=== PATIENT | male | born 1950 | race Caucasian/White ===

== ENCOUNTER → 2018-05-09 10:09 | Outpatient (BNVA) | payer MEDICARE, BC, SELFPAY | PROVIDERS: PCP Family Medicine; Visit Provider Nurse Practitioner Gerontology | DX: R36.1 Hematospermia (principal) | CPT/HCPCS: 81003; 99204 ==

== ENCOUNTER → 2018-08-07 13:05 | Outpatient (BNVA) | payer MEDICARE, BC, SELFPAY | PROVIDERS: PCP Family Medicine; Referring Provider Family Medicine; Visit Provider Physical Therapy Assistant | DX: Z12.11 Encounter for screening for malignant neoplasm of colon (principal) ==

== ENCOUNTER 2018-08-28 10:10 | Day surgery (SDC) | payer MEDICARE, BC, SELFPAY ==
--- NOTE | 2018-08-28 06:46 | W.COLOREPORT ---
Date of service: 08/28/18 Time of Service: 12:02 Colonoscopy Report Date of procedure: 08/28/18 Pre-op diagnosis general: Colon Cancer Screening Post-op diagnosis procedure note: other (Grade 1 internal hemorrhoids, mild diverticulosis, sigmoid polyps x2) Procedure: Colonoscopy with polypectomy by cold forceps Surgeon: Alethea Taylor Anesthesia proc note operative: other (General/ ASA 2 / Janessa Hendrix, SERINA) Estimated blood loss (mL): 3 Pathology: other (sigmoid polyps x 2) Complications: None Disposition: same day Indications: Mr. Beatty is a pleasant 68-year-old male who was seen in the office for a screening colonoscopy. His last colonoscopy was in 2008 and was normal. There is no family history of colon cancer that he is aware of. Risks, benefits and complications have been reviewed. Complications include but are not limited to bleeding, pain, perforation, missed small lesion/polyp, sore throat, aspiration and adverse reaction to the medications. Questions were entertained and answered to their satisfaction and they wished to proceed. No guarantees were given or implied. Prep: Miralax/Dulcolax Procedure Start Time: 12:02 Procedure End Time: 12:23 Retraction Time: 14 minutes Findings: 2 sessile polyps in the sigmoid colon Procedure Description: After informed consent was obtained the patient was taken to the procedure room and placed in a left decubitous position. Monitors were applied and a time out was done. The patients name, date of , procedure, allergies to medications and metal in their body was reviewed. The patient was then sedated. Once sedated and comfortable a rectal exam was done. External exam was normal. Internal exam revealed a normal sphincter tone and no palpable masses. The prostate felt smooth. The scope was then introduced and retro-flexed. Grade 1 internal hemorrhoids were identified. The scope was then advanced to the cecum without difficulty. The TI and appendiceal orifice were identified. The prep was adequate. The scope was then slowly retracted over 14 minutes back into the rectum. Polyps were removed in the sigmoid colon with cold forceps. There was mild diverticulosis of the sigmoid colon. The scope was removed and the patient was woken up and taken back to Same day surgery in stable condition. The patient tolerated the procedure well and there were no immediate complications. Follow up: The patient should follow up in 3-5 years unless they develop changes in bowel habits or other new gastrointestinal complaints.
--- NOTE | 2018-08-28 06:47 | W.PM.DSUDISC ---
Discharge Plan Disposition Patient Disposition: HOME Condition: Good Discharge Details Reason For Visit: Colon Cancer Screening Attending Provider: Alethea Taylor Primary Care Provider: Bonny Massey Home Meds and New Rx's Prescriptions: Continued simvastatin 40 mg tablet 40 mg PO DAILY RF: 0 olanzapine 10 mg tablet 10 mg PO DAILY RF: 0 triamcinolone acetonide 0.1 % cream 1 applic TP BID RF: 0 Discontinued polyethylene glycol 3350 17 gram/dose powder 238 g PO ONCE Qty: 238 RF: 0 bisacodyl [Dulcolax (bisacodyl)] 5 mg tablet,delayed release (DR/EC) 5 mg PO ONCE Qty: 4 RF: 0 Discharge Instructions Instructions: Colonoscopy (DC), Colorectal Polyps (DC), Diverticulosis (DC), Hemorrhoids (DC) Additional Instructions: Findings: 2 small polyps Mild diverticulosis and small internal hemorrhoids Follow up: 3-5 years unless the polyps are benign Please call if you develop: fevers >101.5 Nausea or Vomiting Abdominal pain that is not transient DAY SURGERY UNIT POST COLONOSCOPY INSTRUCTIONS 1. Because there will be medication in your system for the next 24 hours, you may feel a little sleepy. Your coordination will be affected. Therefore: a. Do not drive or operate dangerous equipment for 24 hours. b. Do not drink alcohol beverages for 24 hours (not even beer). c. Plan to go home and rest for the day. 2. Generally there are no restrictions on your activity after a day or so has gone by, but you may feel a bit fatigued for a few days. 3 After you arrive home you may have a light meal and return to a normal diet as you can tolerate it without feeling sick to your stomach. 4. After surgery, you may feel pain or discomfort. This should be only transient, but if it persists please contact your doctor. 5. If there are any questions regarding the findings of your procedure, please feel free to contact your doctor. 6. If you are unable to contact your doctor with a problem, contact the hospital at [phone]. 7. Continue all your regular medications unless directed otherwise. I understand the above instructions and have no questions. Signature of Patient or Responsible Adult Escort Date/Time Name of Responsible Adult Escort Signature of Nurse Date/Time Stand Alone Forms: Kevin Barnhart (LEAHU) Activity:: Activity as Tolerated Diet:: high fiber Discharge Orders Discharge Orders: Discharge Order (Routine); Ordered 08/28/18 Ordered By: Alethea Taylor DS: Diagnosis Discharge Diagnosis (1) S/P colonoscopy: Status: Acute (2) Colorectal polyp detected on colonoscopy: Status: Acute (3) Diverticulosis: Status: Acute (4) Internal hemorrhoids: Status: Acute
[2018-08-28 10:25] VITALS: BP 131/90; PULSE 75; RESP 16; TEMP 36; O2SAT 95
[2018-08-28] MEDS: Lactated Ringers 1,000 ML 80 ML IV (11:03)
--- NOTE | 2018-08-28 12:21 | BOWEL_PTH ---
PATIENT: Hina Beatty LOC: [facility] U#:[id number] AGE/SX: 68/M ROOM: RE08/28/[address]: Alethea Taylor MD : 1950 BED: DIS: 08/28/2018 SPEC #: [id number] RECD: 08/28/18 18:11 STATUS: MICHAEL REQ #: [id number] JENNY: 08/28/18 12:[address]: Alethea Taylor DEPT: Surgical Specimen RECD BY: Justyna Jimenez ENTERED: 08/28/18 18:13 SP TYPE: Bowel OTHR DR: Bonny Massey Tissues: 1 - BIOPSY BOWEL Procedures: GROSS AND MICRO LEVEL 4 Comments: [id number]
[2018-08-28 13:05] VITALS: BP 113/71; PULSE 71; RESP 16; TEMP 36.5; O2SAT 93
== END 2018-08-28 13:20 | disposition home or self-care (01) ==
LOC: SUR 10:11
PROVIDERS: PCP Family Medicine; Visit Provider Surgery
PROC: 0DJD8ZZ Inspection of Lower Intestinal Tract, Via Natural or Artificial Opening Endoscopic (ICD-10-PCS; CPT 45378; principal; 2018-08-28 11:00)
DX: Z12.11 Encounter for screening for malignant neoplasm of colon (principal); D12.5 Benign neoplasm of sigmoid colon; K63.5 Polyp of colon; K64.0 First degree hemorrhoids; K57.30 Diverticulosis of large intestine without perforation or abscess without bleeding
CPT/HCPCS: 45380; 88305

== ENCOUNTER 2018-09-26 09:31 | Outpatient (REF) | payer MEDICARE, BC, SELFPAY ==
[2018-09-26 22:15] LABS: ALT 49 U/L (12-78); AST 21 U/L (15-37); Alkaline Phosphatase 93 U/L (46-116); Anion Gap 11.5 mmol/L (3-11); BUN 11 mg/dL (7-18); Bilirubin, Total 0.7 mg/dL (0.2-1.0); CO2 24.5 mmol/L (21.0-32.0); CREATININE 1.13 mg/dL (0.70-1.30); Calcium 8.8 mg/dL (8.5-10.1); Calculated LDL 78; Chloride 107 mmol/L (98-107); Cholesterol 142 mg/dL (50-200); Glucose 92 mg/dL (70-100); HDL Cholesterol 48 mg/dL (40-60); Sodium 143 mmol/L (136-145); Total Protein 6.7 g/dL (6.4-8.2); Triglyceride 80 mg/dL (30-150)
== END 2018-09-26 09:51 ==
LOC: NCHCN 09:31
PROVIDERS: PCP Family Medicine; Visit Provider Family Medicine
DX: E78.5 Hyperlipidemia, unspecified (principal)
CPT/HCPCS: 80053; 80061; 83721

== ENCOUNTER 2021-07-20 09:42 | Outpatient (REF) | payer MEDICARE, BC, SELFPAY ==
[2021-07-20 17:18] LABS: Hemoglobin A1C 5.8 % (<5.7)
[2021-07-20 17:38] LABS: ALT 62 U/L (16-63); AST 30 U/L (15-37); Albumin 4.2 g/dL (3.4-5.0); Alkaline Phosphatase 89 U/L (46-116); BUN 16 mg/dL (7-18); CREATININE 1.1 mg/dL (0.70-1.30); Calcium 8.9 mg/dL (8.5-10.1); Calculated LDL 63 mg/dL (<100); Chloride 109 mmol/L (98-107); Cholesterol 144 mg/dL (<200); Glucose 113 mg/dL (74-106); HDL Cholesterol 37 mg/dL (40-60); Potassium 4.5 mmol/L (3.5-5.1); Sodium 142 mmol/L (136-145); Total Protein 6.8 g/dL (6.4-8.2); Triglyceride 224 mg/dL (<150)
== END 2021-07-20 09:43 | disposition home or self-care (01) ==
LOC: NCHCN 09:42
PROVIDERS: PCP Family Medicine; Visit Provider Family Medicine
DX: E66.3 Overweight (principal); M79.671 Pain in right foot; E78.5 Hyperlipidemia, unspecified; Z13.1 Encounter for screening for diabetes mellitus
CPT/HCPCS: 80053; 80061; 83036

== ENCOUNTER → 2021-07-20 11:15 | Outpatient (CLI) | payer MEDICARE, BC, SELFPAY ==
--- NOTE | 2021-07-20 13:30 | DI.RAD_ITS ---
Exam(s) XR FOOT RT COMPLETE EXAM: XR FOOT RT COMPLETE CLINICAL HISTORY: RT HEEL PAIN, M79.671,? DJD OR BONE SPUR. TECHNIQUE: 2D digital imaging was performed. COMPARISON: No exams were available for comparison FINDINGS: BONES: No acute fracture is present. No bony destructive lesion is seen. There is mild spurring at t he Achilles insertion on the calcaneus and a tiny plantar calcaneal spur. There are mild degenerativ e changes of the intertarsal 1st tarsal metatarsal joints. Spurring is seen at the anterior aspect d istal tibia. JOINTS: No dislocation present. SOFT TISSUE: Vascular calcifications. IMPRESSION: Tiny heel spurs. Mild degenerative changes. DATA REPOSITORY: RADIATION DOSE DELIVERED:
== END ==
PROVIDERS: PCP Family Medicine; Visit Provider Family Medicine
DX: M79.671 Pain in right foot (principal); M77.31 Calcaneal spur, right foot; M19.071 Primary osteoarthritis, right ankle and foot
CPT/HCPCS: 73630

== ENCOUNTER 2022-10-12 12:34 | Outpatient (REF) | payer MEDICARE, BC, SELFPAY ==
[2022-10-12 14:50] LABS: Anion Gap 12.2 mmol/L (3-11); BUN 17 mg/dL (7-18); CO2 22.8 mmol/L (21.0-32.0); CREATININE 1.1 mg/dL (0.70-1.30); Calcium 9.1 mg/dL (8.5-10.1); Chloride 110 mmol/L (98-107); Estimated GFR 71.77 (mL/min/1.73m2); Glucose 98 mg/dL (74-106); Potassium 4.4 mmol/L (3.5-5.1); Sodium 145 mmol/L (136-145)
[2022-10-12 14:57] LABS: Hemoglobin A1C 5.9 % (<5.7)
[2022-10-12 22:07] LABS: PSA, Screening 3.1 ng/mL (<=6.5)
== END 2022-10-12 12:35 | disposition home or self-care (01) ==
LOC: NCHCN 12:34
PROVIDERS: PCP Family Medicine; Visit Provider Family Medicine
DX: Z12.5 Encounter for screening for malignant neoplasm of prostate (principal); R41.3 Other amnesia; G25.0 Essential tremor; E66.3 Overweight; R73.03 Prediabetes; F31.9 Bipolar disorder, unspecified
CPT/HCPCS: 80048; 84153; 83036

== ENCOUNTER 2023-10-14 14:28 | Outpatient (REF) | payer MEDICARE, BC, SELFPAY ==
[2023-10-14 15:02] LABS: Anion Gap 9.8 mmol/L (3-11); BUN 13 mg/dL (7-18); CO2 25.2 mmol/L (21.0-32.0); Calculated LDL 66 mg/dL (<100); Chloride 107 mmol/L (98-107); Cholesterol 141 mg/dL (<200); Estimated GFR 79.97 (mL/min/1.73m2); Glucose 97 mg/dL (74-106); HDL Cholesterol 41 mg/dL (40-60); Sodium 142 mmol/L (136-145); TSH (W/Ref FT4) 3.35 uIU/mL (0.36-3.74); Triglyceride 173 mg/dL (<150)
[2023-10-14 15:13] LABS: Hemoglobin A1C 5.9 % (<5.7)
== END 2023-10-14 14:29 | disposition home or self-care (01) ==
LOC: NCHCN 14:28
PROVIDERS: PCP Family Medicine; Visit Provider Family Medicine
DX: I10 Essential (primary) hypertension (principal); E78.5 Hyperlipidemia, unspecified; R73.03 Prediabetes; E66.3 Overweight
CPT/HCPCS: 80048; 80061; 83036; 84443

== ENCOUNTER → 2024-01-05 13:42 | Outpatient (BNVA) | payer MEDICARE, BC, SELFPAY | PROVIDERS: PCP Family Medicine; Referring Provider Family Medicine; Visit Provider Physical Therapy Assistant | DX: Z12.11 Encounter for screening for malignant neoplasm of colon (principal) ==

== ENCOUNTER 2024-01-16 08:10 | Day surgery (SDC) | payer MEDICARE, BC, SELFPAY ==
--- NOTE | 2024-01-16 08:42 | W.COLOREPORT ---
Date of service: 01/16/24 Time of Service: 08:42 Colonoscopy Report Procedure Description: PROCEDURES PERFORMED: 1. Colonoscopy PREOPERATIVE DIAGNOSIS: Surveillance colonoscopy, adenomatous polyps POSTOPERATIVE DIAGNOSIS: Grade 1 internal hemorrhoids SURGEON: Georgina Buchanan MD INDICATION for procedure: The patient is a 73-year-old man due for surveillance colonoscopy. He has a personal history of prior adenomatous polyps on last colonoscopy about 5 years ago or so. No family history of colon cancer. No symptoms. FINDINGS: No polyps. No inflammatory findings of any sort. No obvious diverticular disease. Mild grade 1 internal hemorrhoids present. SURVEILLANCE interval/FOLLOW-UP: Considering the history but no polyps on this encounter, I think it is reasonable to repeat another colonoscopy in 7 years - at the age of 80 as long as a good life expectancy exist at that time. SPECIMENS: None EBL: Minimal COMPLICATIONS: None QUALITY of prep: Excellent Procedure in detail: The patient gave written consent and was in agreement with the indications, the potential risks as well as the benefits of the procedure. They were taken to the endoscopy suite and laid in the left lateral decubitus position. A timeout was performed and anesthesia was administered which was tolerated well. I started the procedure. Digital rectal and visual examination was performed and grossly within normal limits. A well-lubricated flexible colonoscope was then introduced and passed without any notable difficulty all the way to the cecum identified by the ileocecal valve and the appendiceal orifice. The scope was then slowly withdrawn with the above-noted findings. The patient tolerated the procedure well and was taken to the PACU in hemodynamically stable condition.
--- NOTE | 2024-01-16 08:43 | W.PM.DSUDISC ---
Date of service: 01/16/24 Time of Service: 08:43 Discharge Plan Disposition Patient Disposition: Home Condition: Good Discharge Details Attending Provider: Ciro Buchanan Primary Care Provider: Bonny Massey Home Meds and New Rx's Prescriptions: No Action simvastatin 40 mg tablet 40 mg PO DAILY olanzapine 10 mg tablet 10 mg PO DAILY bisacodyl [Dulcolax (bisacodyl)] 5 mg tablet,delayed release (DR/EC) 5 mg PO ONCE Qty: 4 0RF Rx Instructions: Take per colonoscopy instructions provided by ordering providers office polyethylene glycol 3350 17 gram/dose powder 17 g PO ONCE Qty: 238 0RF Rx Instructions: Take per colonoscopy instructions provided by ordering providers office metoprolol succinate 50 mg tablet extended release 24 hr 50 mg PO DAILY Patient Comments: dose unverified cholecalciferol (vitamin D3) 25 mcg (1,000 unit) capsule 25 mcg PO DAILY Discharge Instructions Additional Instructions: FINDINGS: No polyps were found today. Your colon and rectum appear very healthy. No inflammatory changes. Overall nothing to worry about. Some very mild hemorrhoid disease was found today which is extremely common, benign and nothing needs to be done about it. You should have another colonoscopy in 7 years because of the history at the age of 80. As long as you have a good life expectancy at that time.(You can decide then) Stand Alone Forms: Colonoscopy Post Instructions Activity:: Activity as Tolerated Diet:: As Tolerated
[2024-01-16 08:52] VITALS: BP 132/76; PULSE 60; RESP 16; TEMP 36.3; O2SAT 94
--- NOTE | 2024-01-16 09:11 | W.ANESPRE ---
General Info Date of Service Date Performed: 01/16/24 Height: 6 ft 3 in Weight: 99.8 kg Body Mass Index (BMI): 27.5 Surgical Procedure: Operation Date: 01/16/24 09:35 Proposed Procedure Side Surgeon p Colonoscopy Ciro Buchanan MD Meds Allergies and Home Medications Allergies Allergy/AdvReac Type Severity Reaction Status Date / Time Opioids - Morphine Analogues Allergy rash Verified 01/16/24 08:44 Home Medication ?Medication ?Instructions ?Recorded olanzapine 10 mg tablet 10 mg PO DAILY 05/09/18 simvastatin 40 mg tablet 40 mg PO DAILY 05/09/18 metoprolol succinate 50 mg 50 mg PO DAILY 02/24/22 tablet,extended release 24 hr cholecalciferol (vitamin D3) 25 25 mcg PO DAILY 12/13/23 mcg (1,000 unit) capsule bisacodyl 5 mg tablet,delayed 5 mg PO ONCE #4 tabs 01/05/24 release (Dulcolax (bisacodyl)) polyethylene glycol 3350 17 17 g PO ONCE #238 grams 01/05/24 gram/dose oral powder Current Visit Medications: Current Medications Generic Name Dose Route Start Last Admin Trade Name Freq PRN Reason Stop Dose Admin Ringer's Solution 1,000 mls @ 80 mls/hr 01/16/24 06:00 IV 01/16/24 23:59 INFUSION CYDNEY IV Miscellaneous Supplies 1 each 01/16/24 06:00 Iv Access IV 01/16/24 23:59 DIRECTED CYDNEY Sodium Chloride 0 ml 01/16/24 06:00 Normal Saline Flush 10 Ml Syr IV 01/16/24 23:59 PRN PRN Sodium Chloride 0 ml 01/16/24 06:00 Normal Saline 10 Ml Vial IJ 01/16/24 23:59 DIRECTED PRN Sterile Water 0 ml 01/16/24 06:00 Water,Injection,Sterile 10 Ml Vial IJ 01/16/24 23:59 DIRECTED PRN PFSH Active Problems Active Problems: Problem Status Onset Code Equinus contracture of ankle Acute M24.573 Plantar fasciitis of right foot Acute M72.2 Internal hemorrhoids Acute K64.8 Diverticulosis Acute K57.90 Colorectal polyp detected on colonoscopy Acute ~08/28/18 K63.5 S/P colonoscopy Acute ~08/28/18 Z98.890 Encounter for screening colonoscopy Acute Z12.11 Medical History Medical History Hypertension Amnesia Pt. denies as well as his Hyperlipidemia Exercise-induced asthma History of basal cell carcinoma Paroxysmal A-fib Ruptured, tendon, Achilles left ~2011, with surgical repair outside of [place]. 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 Erectile dysfunction Bipolar affective disorder Skin rash Surgical History Surgical History History of right hip replacement Right hip replacement 2012 Hx of shoulder surgery Right Total shoulder per pt - 2014 Tobacco Smoking/Tobacco Use Status: Never Alcohol Alcohol Intake: never Substance Use Substance use: Never Substance use type: does not use Vital Signs and Lab Results Vital Signs Most Recent Vital Signs in EMR: Most Recent Vital Signs Temp Pulse Resp BP Pulse Ox 36.3 C L 60 16 132/76 94 01/16/24 08:52 01/16/24 08:52 01/16/24 08:52 01/16/24 08:52 01/16/24 08:52 Lab Results Blood Type / Crossmatch: No Data to Display Complete Blood Count: No Data to Display Complete Metabolic Panel: No Data to Display Liver Function Panel: No Data to Display Coagulation Panel: No Data to Display Cardiac Panel: No Data to Display Arterial Blood Gas: No Data to Display Venous Blood Gas: No Data to Display Pancreas Panel: No Data to Display Thyroid Panel: No Data to Display Infectious Disease: No Data to Display Blood Cultures: No Data to Display Toxicology Panel: No Data to Display Anesthesia Assessment and Plan Anesthesia History Personal History: No History of Anesthesia Complications Family History: No Family History of Anesthesia Complications Exercise Tolerance Exercise Tolerance: Metabolic Equivalents>4 Pertinent Negatives Pertinent Negatives: No Symptoms of GERD, No Major Cardiovascular Symptoms or Complaints, No Major Pulmonary Symptoms or Complaints and No History of CVA/TIA Cardiac & Pulmonary Exam Cardiac Exam: Normal S1/S2 Heart Sounds Pulmonary Exam: Clear Bilateral Breath Sounds Implantable Cardiac Device Does patient have a Pacemaker or an ICD?: No Airway Exam Known Difficult Airway: No Mallampati Class: 4 Mouth Opening: Normal (> 3cm) Thyromental Distance: Greater than 3 cm Neck Range of Motion: Full ROM Neck Circumference: Normal Teeth Condition: Normal Dentition ASA Classification ASA Score: ASA 2 Emergency Case?: No NPO Status NPO Status: NPO Clears >2 hours, Solids >8 hours Anesthesia Plan Resuscitation Status: Full Code Anesthesia Technique: General Anesthesia Airway Planned: Natural Airway Monitors Used: Standard Monitors Preoperative Comments:: 73 y/o male with history of HLD, bipolar affective disorder and paroxysmal atrial fibrillation presents for colonoscopy screening. His last screening was in 2019, which was remarkable for tubular adenoma and hyperplastic polyp.
[2024-01-16 09:14] VITALS: BMI 27.5
[2024-01-16] MEDS: Lactated Ringers 1,000 ML 80 ML IV (09:15)
[2024-01-16 10:08] VITALS: BP 141/81; PULSE 57; RESP 16; TEMP 36.2; O2SAT 96
[2024-01-16 10:29] VITALS: BP 144/77; PULSE 60; RESP 18; TEMP 36.3; O2SAT 94
--- NOTE | 2024-01-16 10:38 | W.ANESPOSTOP ---
Postoperative Evaluation Date, Time and Location Date Performed: 01/16/24 Time Performed: 10:38 Patient Location: Day Surgery Unit Vital Signs Most Recent Imported Vital Signs: Most Recent Vital Signs Temp Pulse Resp BP Pulse Ox 36.3 C L 60 18 144/77 H 94 01/16/24 10:29 01/16/24 10:29 01/16/24 10:29 01/16/24 10:29 01/16/24 10:29 Assessment Mental Status: Awake (Alert & Oriented to Patient Baseline) Airway and Respiratory Function: Patent airway with normal (patient baseline) respiratory exam Cardiovascular Function: Hemodynamically Stable Hydration Status: Adequately Hydrated Nausea & Vomiting: No Nausea or Vomiting Pain: Pt. Denies Any Pain Peripheral Nerve Block: Patient did not receive a nerve block
== END 2024-01-16 11:02 | disposition home or self-care (01) ==
PROVIDERS: PCP Family Medicine; Visit Provider Student in an Organized Health Care Education/Training Program
PROC: 0DJD8ZZ Inspection of Lower Intestinal Tract, Via Natural or Artificial Opening Endoscopic (ICD-10-PCS; CPT 45378; principal; 2024-01-16 09:30)
DX: Z12.11 Encounter for screening for malignant neoplasm of colon (principal); K64.0 First degree hemorrhoids
CPT/HCPCS: G0105; 00123; J2001; J2704

== ENCOUNTER → 2024-11-05 09:32 | Outpatient (BNVA) | payer MEDICARE, BC, SELFPAY | PROVIDERS: PCP Family Medicine; Referring Provider Family Medicine; Visit Provider Psychiatry & Neurology Neurology | DX: G31.84 Mild cognitive impairment of uncertain or unknown etiology (principal); R26.89 Other abnormalities of gait and mobility; R29.2 Abnormal reflex; G56.23 Lesion of ulnar nerve, bilateral upper limbs; I48.20 Chronic atrial fibrillation, unspecified; I10 Essential (primary) hypertension | CPT/HCPCS: 99215 ==

== ENCOUNTER 2024-11-28 16:17 | Outpatient (REF) | payer MEDICARE, BC, SELFPAY ==
[2024-11-28 20:57] LABS: Hemoglobin A1C 5.8 % (<5.7)
[2024-11-28 21:04] LABS: ALT 44 U/L (16-63); AST 27 U/L (15-37); Albumin 3.8 g/dL (3.4-5.0); Alkaline Phosphatase 94 U/L (46-116); Anion Gap 9.1 mmol/L (3-11); BUN 18 mg/dL (7-18); Bilirubin, Total 0.9 mg/dL (0.2-1.0); CO2 24.9 mmol/L (21.0-32.0); Calcium 9.0 mg/dL (8.5-10.1); Calculated LDL 47 mg/dL (<100); Chloride 107 mmol/L (98-107); Cholesterol 134 mg/dL (<200); Estimated GFR 79.47 (mL/min/1.73m2); Glucose 117 mg/dL (74-106); HDL Cholesterol 31 mg/dL (>or=40); Potassium 4.3 mmol/L (3.5-5.1); Sodium 141 mmol/L (136-145); Total Protein 6.8 g/dL (6.4-8.2); Triglyceride 283 mg/dL (<150); Vitamin B12 297 pg/mL (193-986)
== END 2024-11-28 16:18 | disposition home or self-care (01) ==
LOC: NCHCN 16:17
PROVIDERS: PCP Family Medicine; Visit Provider Family Medicine
DX: E78.5 Hyperlipidemia, unspecified (principal); R73.03 Prediabetes; I10 Essential (primary) hypertension; G31.84 Mild cognitive impairment of uncertain or unknown etiology
CPT/HCPCS: 80053; 80061; 82607; 83036

== ENCOUNTER 2024-11-30 00:44 | Outpatient (CLI) | payer MEDICARE, BC, SELFPAY ==
--- NOTE | 2024-11-30 07:45 | DI.MRI_ITS ---
Exam(s) MR BRAIN WO EXAM: MR BRAIN WO CLINICAL HISTORY: L babinski,minimal cognitive impairment,g31.84 TECHNIQUE: Multiplanar multisequence MRI of the brain was performed. COMPARISON: No exams were available for comparison FINDINGS: CEREBRAL PARENCHYMA: There is no evidence of intracranial hemorrhage, mass effect, or shift of midline structures. There are no extra-axial fluid collections. Ventricles are not enlarged or shifted. There is no significant focal signal abnormality in the cerebellar hemispheres nor within the alex, midbrain, and thalami. Very mild white matter signal abnormality around the atria of both lateral ventricles. No evidence of infarct. No evidence of demyelinating disease in the brain. There is no significant focal signal abnormality/evident on diffusion imaging to suggest acute ischemic event. PITUITARY GLAND: No mass nor parasellar abnormality. No obvious abnormality in the cavernous sinuses. FLOW VOIDS: The expected flow void are noted. No evidence of obvious aneurysm nor obvious vascular malformation. PARANASAL SINUSES: The visualized paranasal sinuses appear unremarkable. No obvious finding ORBITS: No obvious findings. IMPRESSION: No significant intracranial findings on this noninfused MRI scan of the brain. DATA REPOSITORY:
--- NOTE | 2024-11-30 07:45 | DI.MRI_ITS ---
Exam(s) MR CERVICAL SPINE WO EXAM: MR CERVICAL SPINE WO CLINICAL HISTORY: ? myelopathy,balance disorder,bainski reflex, r26.89,r29.2 TECHNIQUE: Multiplanar multisequence MRI of the cervical spine was performed without intravenous contrast. COMPARISON: MR MRI - LUMBAR SPINE WO CONTRAST from 04/29/2011 FINDINGS: CERVICOMEDULLARY JUNCTION: Intact with no evidence of cerebellar tonsillar ectopia. No obvious abnormality of the odontoid process. No evidence of Chiari 1 malformation. CERVICAL SPINAL CORD: There is no abnormal signal in the cervical spinal cord and no evidence of focal cord atrophy nor focal cord swelling. No evidence of syringomyelia in the cervical spinal cord. OSSEOUS:There are no cervical fractures evident. No significant osseous lesions in the cervical vertebrae. There is advanced disc space narrowing at C6-7 level with what appears to be partial osseous fusion anteriorly. Small benign intraosseous hemangioma is noted in the upper C7 vertebral body. INDIVIDUAL LEVELS: C2-3: No disc herniation nor central canal stenosis. No foraminal stenosis. Right facet joint appears un remarkable. There is fusion across the left C2-3 facet joint. There is no foraminal stenosis on either side at this level. C3-4: Preserved disc height. Anterior osseous lipping. Posteriorly there is central subligamentous annular bulging but without a dominant disc herniation. Central canal dimensions are lower normal. There are advanced degenerative changes in the right facet joint at this level and moderate degenerative changes in the left facet joint. There is moderate bilateral foraminal stenosis at this level. C4-5: This level exhibits relatively preserved disc height. Anterior osseous lipping. Posteriorly there is mild annular bulging. No dominant disc herniation. Central canal dimensions are within normal limits. There arm mild degenerative changes in the right facet joint at this level. More advanced degenerative changes are noted in the left facet joint at this level. Mild left-sided foraminal stenosis. Moderate-advanced foraminal stenosis on the right side. C5-6: Mild disc space narrowing. Anterior osseous lipping. Posteriorly there is broad relatively symmetrical annular bulging which effaces the anterior thecal sac. AP measurement of the spinal canal at this level is 8 mm. There is no dominant disc herniation. Left facet joint unremarkable. No obvious foraminal stenosis on the left side. Moderate degenerative changes in the right facet joint. Mild foraminal stenosis on the right side. C6-7: The disc space at this level is significantly diminished and there appears to be partial fusion across the anterior vertebral bodies. There is no fusion across the facet joints at this level. There is central subligamentous annular bulging. No central canal stenosis. Right facet joint unremarkable and there is no significant foraminal stenosis on the right side at this level. Left facet joint also appears unremarkable and there is minimal foraminal stenosis on the left side at this level. C7-T1: No disc herniation nor central canal stenosis. No facet arthropathy.No foraminal stenosis. IMPRESSION: 1. There is multilevel chronic degenerative disc disease as described per individual level above. However, there is no dominant disc herniation. No prominent central canal stenosis. There is effacement of the anterior thecal sac at the C5-6 level by annular bulging but no prominent central canal donavon nosis. 2. There are multilevel asymmetric facet joint findings. Mild asymmetric foraminal stenosis. 3. There is partial fusion of C6-7 vertebral bodies. No obvious signal abnormality in the cervical spinal cord. No syringomyelia. No evidence of focal cord atrophy nor focal cord swelling. There is no cerebellar tonsillar ectopia. DATA REPOSITORY:
== END 2024-11-30 01:04 ==
LOC: DI 00:44
PROVIDERS: PCP Family Medicine; Visit Provider Psychiatry & Neurology Neurology
DX: G31.84 Mild cognitive impairment of uncertain or unknown etiology (principal); R26.89 Other abnormalities of gait and mobility; R29.2 Abnormal reflex; M43.22 Fusion of spine, cervical region
CPT/HCPCS: 70551; 72141

== ENCOUNTER → 2025-01-15 10:44 | Outpatient (BNVA) | payer MEDICARE, BC, SELFPAY | PROVIDERS: PCP Family Medicine; Referring Provider Family Medicine; Visit Provider Psychiatry & Neurology Neurology | DX: G31.84 Mild cognitive impairment of uncertain or unknown etiology (principal); R26.89 Other abnormalities of gait and mobility; R29.2 Abnormal reflex; G56.20 Lesion of ulnar nerve, unspecified upper limb; I48.0 Paroxysmal atrial fibrillation; G20.C Parkinsonism, unspecified; G62.89 Other specified polyneuropathies; I10 Essential (primary) hypertension | CPT/HCPCS: 99215; 95908 ==

== ENCOUNTER 2025-04-08 13:03 | Outpatient (REF) | payer MEDICARE, BC, SELFPAY ==
[2025-04-09 14:51] LABS: Albumin 62.5 % (55.8-66.1); Albumin g/dL 4.4 g/dL (3.6-5.2); Alpha 1 g/dL 0.40 g/dL (0.15-0.40); Alpha 2 g/dL 0.80 g/dL (0.50-1.00); Beta g/dL 0.80 g/dL (0.60-1.20); Gamma g/dL 0.70 g/dL (0.60-1.60); Total Protein 7.1 g/dL (6.3-8.2)
== END 2025-04-08 13:04 | disposition home or self-care (01) ==
LOC: NCHCN 13:03
PROVIDERS: PCP Family Medicine; Visit Provider Family Medicine
DX: G62.89 Other specified polyneuropathies (principal)
CPT/HCPCS: 84165